=== PATIENT | female | born 1990 | race African-American/Black ===

== ENCOUNTER 2016-06-23 02:17 | Emergency (ER) | payer SELFPAY ==
--- NOTE | 2016-06-23 06:18 | ER Document Report ---
ED General <EMBER VILLALBA - Last Filed: 06/23/16 07:09> - General Time seen by provider: 06:20 Mode of Arrival: Ambulatory Information source: Patient TRAVEL OUTSIDE OF THE [place] IN LAST 30 DAYS: No - HPI Onset: Other - see HPI note Similar symptoms previously: No Recently seen / treated by doctor: No <VELMA SKINNER - Last Filed: 06/23/16 07:38> - General Chief Complaint: Toothache Stated Complaint: THROAT PAIN,WRIST PAIN Notes: Patient is a 25 year-old female presenting to the ED for mouth pain and wrist pain. Patient states she was coming to the ED to be evaluated for her sore mouth and tooth when she fell on her way to the car and hurt her left wrist. Patient has a broken tooth in the right upper back molar position. Patient has had the pain for the past 3 days. Patient states she has been taking Tylenol for her pain without relief. Patient states she is allergic to acetaminophen, doxycycline, hydrocodone, and ibuprofen. Patient has received hydrocodone in the past and states that it made her itch when it was given at the same time as the doxycycline. Patient does not have a primary care physician. Patient denies taking any medications daily. Patient's last menstrual period was 06/07/16. Patient has been evaluated in the ED for pain related complaints and tooth pain in the past. (VELMA SKINNER) - Related Data Allergies/Adverse Reactions: acetaminophen [From Vicodin] Allergy (Verified 06/23/16 02:20) doxycycline [Doxycycline] Allergy (Verified 06/23/16 02:19) hydrocodone [From Vicodin] Allergy (Verified 06/23/16 02:20) ibuprofen Allergy (Verified 06/23/16 02:20) Past Medical History - General Information source: Patient - Social History Smoking Status: Current Some Day Smoker Frequency of alcohol use: None Drug Abuse: None Family History: Reviewed & Not Pertinent, Other - family members with migraines Patient has suicidal ideation: No Patient has homicidal ideation: No Pulmonary Medical History: Reports: Hx Asthma Neurological Medical History: Reports: Hx Migraine Surgical Hx: Negative - Immunizations Hx Diphtheria, Pertussis, Tetanus Vaccination: Yes <VELMA SKINNER - Last Filed: 06/23/16 07:38> Review of Systems - Review of Systems Constitutional: No symptoms reported EENT: See HPI, Dental problem Cardiovascular: No symptoms reported Respiratory: No symptoms reported Gastrointestinal: No symptoms reported Genitourinary: No symptoms reported Female Genitourinary: No symptoms reported Musculoskeletal: See HPI Skin: No symptoms reported Hematologic/Lymphatic: No symptoms reported Neurological/Psychological: No symptoms reported -: Yes All other systems reviewed and negative <VELMA SKINNER - Last Filed: 06/23/16 07:38> Physical Exam - Vital signs Interpretation: Normal - General General appearance: Appears well, Alert In distress: Mild - HEENT Head: Normocephalic, Atraumatic Eyes: Normal Pupils: PERRL Mouth/Lips: Other - right upper back molar is broken off on the buccal side of the tooth, no swelling or sign of infection Mucous membranes: Moist Pharynx: Normal - Respiratory Respiratory status: No respiratory distress Chest status: Nontender Breath sounds: Normal Chest palpation: Normal - Cardiovascular Rhythm: Regular Heart sounds: Normal auscultation Murmur: No - Abdominal Inspection: Normal Distension: No distension Bowel sounds: Normal Tenderness: Nontender Organomegaly: No organomegaly - Back Back: Normal, Nontender - Extremities General lower extremity: Normal inspection, Normal ROM, Normal strength Wrist: Nontender - no tenderness or swelling along the distal ulna of the left wrist, Tender - tender and pain along the distal radius of the left wrist and over the the radial side of the distal 1/3 of the wrist, minimal swelling - Neurological Neuro grossly intact: Yes Cognition: Normal Orientation: AAOx4 [place] Coma Scale Eye Opening: Spontaneous Michael Coma Scale Verbal: Oriented Michael Coma Scale Motor: Obeys Commands [place] Coma Scale Total: 15 Speech: Normal Sensory: Normal - Psychological Associated symptoms: Normal affect, Normal mood - Skin Skin Temperature: Warm Skin Moisture: Dry <VELMA SKINNER - Last Filed: 06/23/16 07:38> - Vital signs Vitals: Temp Pulse Resp BP Pulse Ox 98.0 F 92 16 141/76 H 97 06/23/16 02:20 06/23/16 02:20 06/23/16 02:20 06/23/16 02:20 06/23/16 02:20 Course - Diagnostic Test Radiology reviewed: Image reviewed, Reports reviewed <EMBER VILLALBA - Last Filed: 06/23/16 07:09> <VELMA SKINNER - Last Filed: 06/23/16 07:38> - Re-evaluation Re-evalutation: 06/23/16 07:10 The x-ray was read as a dorsal subluxation of the distal ulna with some mild soft tissue swelling. On exam, all the pain is at the distal radius and over the mid radial forearm. There really is no tenderness over the distal ulna. There is no swelling appreciated. Examination of the other wrist shows similar appearance to the distal ulna. I suspect that is her normal anatomy. (EMBER VILLALBA) - Vital Signs Vital signs: Temp Pulse Resp BP Pulse Ox 98.3 F 77 16 123/74 99 06/23/16 06:53 06/23/16 06:53 06/23/16 06:53 06/23/16 06:53 06/23/16 06:53 Discharge <EMBER VILLALBA - Last Filed: 06/23/16 07:09> <VELMA SKINNER - Last Filed: 06/23/16 07:38> - Discharge Clinical Impression: Dental decay, Sore throat Left wrist sprain Qualifiers: Encounter type: initial encounter Qualified Code(s): S63.502A - Unspecified sprain of left wrist, initial encounter Condition: Stable Disposition: HOME, SELF-CARE Additional Instructions: Toothache: Your pain is due to dental decay. The tooth must be repaired in order for you to feel better. You will, therefore, be referred to a dentist. Severe swelling or drainage around a tooth usually means a deep dental abscess. This also requires evaluation and treatment by the dentist, but antibiotics may be prescribed while awaiting dental treatment. You should be rechecked immediately if you develop major swelling of the face, increasing pain, a lump in the jaw or gums, headache, or fever. Wrist Sprain: Your injury is a sprain. A sprain results from stretching or tearing of the ligaments, usually from a twisting injury. The ligaments will require time and protection in order to heal properly. Many sprains are quite disabling and should be taken seriously. The usual initial treatment of sprains is cold packs, elevation, and rest of the injured area. Your physician has assessed the seriousness of your ligament injury, and has outlined a treatment plan. Understand that this treatment may change, depending on how you progress. If a re-examination was recommended, it is important that you follow up as instructed. Call the doctor any time if there is severe pain, numbness, or loss of function in the injured area. USE THE SPLINT TO PROTECT THE WRIST. USE ICE-PACKS TODAY TO LIMIT SWELLING. TRY FIX-A-TOOTH TO SEAL THE HOLE ON THE OUTER WALL OF THE PAINFUL TOOTH. TAKE THE MEDICATION PRESCRIBED. FOLLOW UP WITH A DENTIST FOR THE DENTAL PROBLEM. FOLLOW UP WITH A LOCAL MEDICAL DOCTOR OR ORTHOPEDIC SURGEON THIS WEEK TO CHECK YOUR WRIST. Prescriptions: Oxycodone HCl/Acetaminophen [Percocet 5-325 mg Tablet] 1 - 2 tab PO ASDIR PRN # 10 tablet PRN Reason: Penicillin V Potassium [Penicillin Vk 500 mg Tablet] 500 mg PO QID #28 tablet Referrals: [facility] [Provider Group] - Follow up in 3-5 days Scribe Attestation: 06/23/16 06:42 I personally performed the services described in the documentation, reviewed and edited the documentation which was dictated to the scribe in my presence, and it accurately records my words and actions. (EMBER VILLALBA) Scribe Documentation - Scribe Written by Scribnakul:: Velma Skinner 06/23/16 7:33 acting as scribe for :: Edgar <VELMA SKINNER - Last Filed: 06/23/16 07:38>
[2016-06-23] MEDS ORDERED: OXYCODONE-ACETAMINOPHEN 5-325 MG TABLET PO ONE (06:35)
[2016-06-23 06:54] VITALS: BP 123/74
== END 2016-06-23 06:54 | disposition home or self-care (01) ==
LOC: ER 02:17
DX: S63.502A Unspecified sprain of left wrist, initial encounter (principal); K08.89 Other specified disorders of teeth and supporting structures; K02.9 Dental caries, unspecified; R07.0 Pain in throat; M25.532 Pain in left wrist; W19.XXXA Unspecified fall, initial encounter; Z79.899 Other long term (current) drug therapy; F17.200 Nicotine dependence, unspecified, uncomplicated
CPT/HCPCS: 99283; 73110; L3984

== ENCOUNTER 2017-07-11 06:48 | Emergency (ER) | payer SELFPAY ==
[2017-07-11 07:05] VITALS: BP 128/79
[2017-07-11] MEDS ORDERED: PENICILLIN V POTASSIUM 500 MG TABLET PO ONE (07:31)
[2017-07-11] MEDS ORDERED: TRAMADOL HCL 50 MG TABLET PO ONE (07:31)
--- NOTE | 2017-07-11 07:34 | ER Document Report ---
HPI - HPI Patient complains to provider of: dental pain Onset: Other - 3 days Onset/Duration: Persistent Quality of pain: Achy Pain Level: 5 Context: Patient presents complaining of dental pain for the past 3 days. Patient is uncertain if she may have had a fever. Patient feels that her face has been swollen. Associated Symptoms: Other - Dental pain Exacerbated by: Denies Relieved by: Denies Similar symptoms previously: Yes Recently seen / treated by doctor: No - ROS ROS below otherwise negative: Yes Systems Reviewed and Negative: Yes All other systems reviewed and negative - CONSTITUTIONAL Constitutional: DENIES: Fever, Chills - EENT Notes: dental pain - GASTROINTESTINAL Gastrointestinal: DENIES: Nausea, Patient vomiting - REPRODUCTIVE Reproductive: DENIES: : - MUSCULOSKELETAL Musculoskeletal: DENIES: Neck Pain - DERM Skin Color: Normal Skin Problems: None Past Medical History - General Information source: Patient - Social History Smoking Status: Never Smoker Chew tobacco use (# tins/day): No Frequency of alcohol use: None Drug Abuse: None Family History: Reviewed & Not Pertinent, Other - family members with migraines Patient has suicidal ideation: No Patient has homicidal ideation: No Pulmonary Medical History: Reports: Hx Asthma Neurological Medical History: Reports: Hx Migraine. Denies: Hx Cerebrovascular Accident Renal/ Medical History: Denies: Hx Peritoneal Dialysis Skin Medical History: Denies Hx MRSA Surgical Hx: Negative - Immunizations Hx Diphtheria, Pertussis, Tetanus Vaccination: Yes Vertical Provider Document - CONSTITUTIONAL Agree With Documented VS: Yes Exam Limitations: No Limitations General Appearance: WD/WN, No Apparent Distress - INFECTION CONTROL TRAVEL OUTSIDE OF THE [place] IN LAST 30 DAYS: No - HEENT HEENT: Atraumatic, Normocephalic Mouth Diagram: 1 - dental fracture, decay, tenderness, no gingival inflammation 2 - Dental fracture, tenderness, no abscess, no trismus - NECK Neck: Normal Inspection, Supple. negative: Lymphadenopathy-Left, Lymphadenopathy-Right - RESPIRATORY Respiratory: Breath Sounds Normal, No Respiratory Distress - CARDIOVASCULAR Cardiovascular: Regular Rate, Regular Rhythm, No Murmur - BACK Back: Normal Inspection - MUSCULOSKELETAL/EXTREMETIES Musculoskeletal/Extremeties: MAEW - NEURO Level of Consciousness: Awake, Alert, Appropriate Motor/Sensory: No Motor Deficit - DERM Integumentary: Warm, Dry, No Rash Course - Re-evaluation Re-evalutation: 07/11/17 controlled substance database reviewed - Vital Signs Vital signs: Temp Pulse Resp BP Pulse Ox 98.3 F 80 16 128/79 H 97 07/11/17 07:00 07/11/17 07:00 07/11/17 07:00 07/11/17 07:00 07/11/17 07:00 Discharge - Discharge Clinical Impression: Toothache Condition: Stable Disposition: HOME, SELF-CARE Instructions: Penicillin V K ([facility]), Toothache ([facility]), Ultram ([facility]) Additional Instructions: Return immediately for any new or worsening symptoms Followup with your primary care provider, call tomorrow to make a followup appointment Follow-up with your dental care provider Prescriptions: Penicillin V Potassium [Penicillin Vk 500 mg Tablet] 500 mg PO BID #20 tablet Tramadol HCl [Ultram 50 mg Tablet] 50 mg PO ASDIR PRN #12 tablet PRN Reason: Forms: Return to Work Referrals: DENTISTRY [Provider Group] - Follow up as needed
== END 2017-07-11 07:49 | disposition home or self-care (01) ==
LOC: ER 06:48
DX: K08.9 Disorder of teeth and supporting structures, unspecified (principal)
CPT/HCPCS: 99282

== ENCOUNTER 2018-11-07 19:33 | Inpatient (IN) | payer SELFPAY ==
--- NOTE | 2018-11-07 20:01 | ER Document Report ---
ED Medical Screen (RME) - General Chief Complaint: OB Problem (<20wks) Stated Complaint: ISSUE Time Seen by Provider: 11/07/18 19:44 Mode of Arrival: Ambulatory Information source: Patient Notes: Patient is a 27-year-old female presented with chief complaint of pelvic pain abdominal pain. Patient reports she is . She thinks she is approximately 22 weeks but she is not sure. Patient reports she has 2 different due dates, 1 of these 2 days puts her below 20 weeks and 1 of them puts her at 22 weeks. The pivot nurse did call labor and delivery who requested ultrasound to confirm dates. Patient denies any active bleeding, nausea, vomiting or diarrhea. I have greeted and performed a rapid initial assessment of this patient. A comprehensive ED assessment and evaluation of the patient, analysis of test results and completion of the medical decision making process will be conducted by additional ED providers. I have specifically instructed the patient or family members with the patient to immediately return to any nursing staff should anything change in the patient's condition or with their chief complaint. This medical record was dictated with voice recognizing software. There may be grammatical, syntax errors that are unintended. TRAVEL OUTSIDE OF THE [place] IN LAST 30 DAYS: No - Related Data Allergies/Adverse Reactions: doxycycline [Doxycycline] Allergy (Verified 06/23/16 02:19) hydrocodone [From Vicodin] Allergy (Verified 06/23/16 02:20) Past Medical History - Social History Frequency of alcohol use: None Drug Abuse: None Pulmonary Medical History: Reports: Hx Asthma Neurological Medical History: Reports: Hx Migraine. Denies: Hx Cerebrovascular Accident Renal/ Medical History: Denies: Hx Peritoneal Dialysis Skin Medical History: Denies Hx MRSA - Immunizations Hx Diphtheria, Pertussis, Tetanus Vaccination: Yes Physical Exam - Vital signs Vitals: Temp Pulse Resp BP Pulse Ox 98.9 F 80 20 138/84 H 100 11/07/18 19:37 11/07/18 19:37 11/07/18 19:37 11/07/18 19:37 11/07/18 19:37 Course - Vital Signs Vital signs: Temp Pulse Resp BP Pulse Ox 98.9 F 80 20 138/84 H 100 11/07/18 19:37 11/07/18 19:37 11/07/18 19:37 11/07/18 19:37 11/07/18 19:37
[2018-11-07 20:40] LABS: ABSOLUTE EOSINOPHILS # (AUTO) 0.1 10^3/uL (0.0-0.6); ABSOLUTE MONOCYTES (AUTO) 0.7 10^3/uL (0.1-1.4); APPEARANCE,URINE CLOUDY; BASOPHILS % (AUTO) 0.4 % (0-2); BILIRUBIN,URINE NEGATIVE (NEGATIVE); COLOR,URINE YELLOW; EOSINOPHILS % (AUTO) 1.2 % (0-6); GLUCOSE, URINE NEGATIVE (NEGATIVE); HEMATOCRIT 30.7 % (36.0-47.0); HEMOGLOBIN 10.8 g/dL (12.0-15.5); KETONES,URINE NEGATIVE (NEGATIVE); LEUKOCYTE ESTERASE,URINE NEGATIVE (NEGATIVE); LYMPHOCYTES % (AUTO) 18.3 % (13-45); MEAN CORPUSCULAR HEMOGLOBIN 28.8 pg (27.0-33.4); MEAN CORPUSCULAR HGB CONC 35.2 g/dL (32.0-36.0); MEAN CORPUSCULAR VOLUME 82 fl (80-97); MONOCYTES % (AUTO) 6.5 % (3-13); NITRITE,URINE NEGATIVE (NEGATIVE); PLATELET COUNT 339 10^3/uL (150-450); PROTEIN,URINE NEGATIVE (NEGATIVE); RED BLOOD COUNT 3.75 10^6/uL (3.72-5.28); RED CELL DISTRIBUTION WIDTH 13.9 % (11.5-14.0); SEGMENTED NEUTROPHILS % (AUTO) 73.6 % (42-78); TOTAL CELLS COUNTED % (AUTO) 100 %; URINE SPECIFIC GRAVITY 1.023; WHITE BLOOD COUNT 10.9 10^3/uL (4.0-10.5)
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
--- NOTE | 2018-11-07 20:55 | RADIOLOGY REPORT (SQ) ---
EXAM DESCRIPTION: US LIMITED COMPLETED DATE/TME: 11/07/2018 20:08 CLINICAL HISTORY: 27 years, Female, eval for side and dates, well being Findings: No movement is noted. No heart tones are noted. Estimated gestational age is 17 weeks and three days. Amniotic fluid is clear. IMPRESSION: Findings suspicious for intrauterine demise.
[2018-11-08] MEDS ORDERED: OXYCODONE-ACETAMINOPHEN 5-325 MG TABLET ONE ×4 (00:32→14:37)
[2018-11-08] MEDS ORDERED: RINGERS SOLUTION,LACTATED 1,000 ML IV PRN (00:35)
[2018-11-08] MEDS ORDERED: MISOPROSTOL 0.2 MG TABLET PV SCH ×2 (00:45→10:00)
[2018-11-08] MEDS ORDERED: MISOPROSTOL 0.2 MG TABLET ONE ×6 (01:54→15:32)
--- NOTE | 2018-11-08 02:37 | Admission Physical ---
Datetime Report Generated by CPN: 11/08/2018 02:37 CURRENT ADMISSION Chief Complaint: Other Chief Complaint Other: 17 wks. was told at [facility] no [facility]. Re-evaluation in ER confirmed. Has not had PNC. Indication for Induction: Demise Admit Impression : , Intrauterine ; Demise Admit Plan: Admit to Unit; Initiate Demise Protocol ALLERGIES Medication Allergies: hydrocodone (06/23/2016); doxycycline (06/23/2016) Latex: Unknown OBSTETRICAL HISTORY EDC: 04/14/2019 00:00 : 3 Para: 2 Term: 2 : 0 Livin SEE RECORDS Alcohol: No Marijuana : No Cocaine: No Other Illicit Drugs: No Cigarettes: Never Smoker. [id number] PHYSICAL EXAM General: Normal HEENT: Normal Neurologic: Normal Thyroid: Normal Heart: Normal Lungs: Normal Breast: Normal Back: Normal Abdomen: Normal Genitourinary Exam: Normal Extremities: Normal DTRs: Normal Pelvic Type: Adequate Vital Signs: Reviewed VAGINAL EXAM Dilatation: 0 Effacement: 0 Station: -4 MEMBRANES Pooling: Negative Membranes: Intact FETUS A EGA: 17.4 Monitoring: External US Admit Comment: induction with cytotec for evacuation of uterus of POC INFORMED CONSENT Signature: with User ID: [email or web address]
[2018-11-08] MEDS: OXYCODONE-ACETAMINOPHEN 5-325 MG TABLET PO PRN ×4 (06:18→20:41)
[2018-11-08] MEDS ORDERED: NALBUPHINE HCL INJ 10 MG/1 ML AMPULE INJ ONE (13:25)
[2018-11-08] MEDS ORDERED: NALBUPHINE HCL INJ 10 MG/1 ML AMPULE ONE (13:28)
[2018-11-08] MEDS: MISOPROSTOL 0.2 MG TABLET PO SCH ×2 (14:34→21:54)
[2018-11-08] MEDS ORDERED: MISOPROSTOL 0.2 MG TABLET PO ONE (15:35)
[2018-11-08] MEDS ORDERED: OXYTOCIN/NORMAL SALINE 20 UNIT/1,000 ML RTUINJ IV PRN ×2 (15:35→15:37)
[2018-11-08] MEDS ORDERED: DIPHENHYDRAMINE HCL 25 MG CAPSULE PO PRN (15:37)
[2018-11-08] MEDS ORDERED: ACETAMINOPHEN WITH CODEINE #3 TABLET PO PRN (15:37)
[2018-11-08] MEDS ORDERED: MAGNESIUM HYDROXIDE SUSP 30 ML UDCUP PO PRN (15:37)
[2018-11-08] MEDS ORDERED: BENZOCAINE/MENTHOL AEROSOL SPRAY 56 ML TOP PRN (15:37)
[2018-11-08] MEDS ORDERED: NA PHOS,M-B/NA PHOS,DI-BA (ADULT) 133 ML ENEMA PR PRN (15:37)
[2018-11-08] MEDS ORDERED: MEASLES,MUMPS&RUBELLA VACC/PF 0.5 ML VIAL SUBCUT PRN (15:37)
[2018-11-08] MEDS ORDERED: DIPH/PERTUSS(ACELL)/TETANUS VAC/PF 0.5 ML SYR (>=10YO) IM PRN (15:37)
[2018-11-08] MEDS ORDERED: PROMETHAZINE HCL 25 MG SUPP.RECT PR PRN (15:37)
[2018-11-08] MEDS ORDERED: ZOLPIDEM TARTRATE 5 MG TABLET PO PRN (15:37)
[2018-11-08] MEDS ORDERED: GLYCERIN/WITCH HAZEL LEAF 1 EACH MED..WIPE TP PRN (15:37)
[2018-11-08] MEDS ORDERED: DIBUCAINE 1% OINTMENT 56 GM TP PRN (15:37)
[2018-11-08] MEDS ORDERED: PROMETHAZINE HCL 25 MG TABLET PO PRN (15:37)
[2018-11-08] MEDS ORDERED: OXYTOCIN/NORMAL SALINE 20 UNIT/1,000 ML RTUINJ ONE (15:37)
[2018-11-08] MEDS ORDERED: ACETAMINOPHEN 650 MG SUPP.RECT PR PRN (15:37)
[2018-11-08] MEDS ORDERED: PSEUDOEPHEDRINE HCL 30 MG TABLET PO PRN (15:37)
[2018-11-08] MEDS ORDERED: PROMETHAZINE HCL INJ 25 MG/1 ML VIAL IV PRN (15:37)
[2018-11-08] MEDS ORDERED: ACETAMINOPHEN WITH CODEINE #3 TABLET ONE (18:30)
[2018-11-08] MEDS: ACETAMINOPHEN WITH CODEINE #3 TABLET PO PRN (18:31)
[2018-11-08] MEDS: IBUPROFEN 800 MG TABLET PO SCH (21:49)
[2018-11-08] MEDS: FAMOTIDINE 20 MG TABLET PO SCH (21:54)
[2018-11-08] MEDS: DOCUSATE SODIUM 100 MG CAPSULE PO SCH (21:54)
[2018-11-08] MEDS: FERROUS SULFATE 325 MG TABLET PO SCH (21:54)
[2018-11-09] MEDS: OXYCODONE-ACETAMINOPHEN 5-325 MG TABLET PO PRN ×3 (01:39→13:27)
[2018-11-09] MEDS: IBUPROFEN 800 MG TABLET PO SCH ×2 (05:34→14:33)
[2018-11-09] MEDS: FERROUS SULFATE 325 MG TABLET PO SCH ×2 (09:26→17:03)
[2018-11-09] MEDS: FAMOTIDINE 20 MG TABLET PO SCH (09:26)
[2018-11-09] MEDS: DOCUSATE SODIUM 100 MG CAPSULE PO SCH ×2 (09:26→17:03)
[2018-11-09 09:38] LABS: HEMATOCRIT 21.9 % (36.0-47.0); MEAN CORPUSCULAR HEMOGLOBIN 29.4 pg (27.0-33.4); MEAN CORPUSCULAR HGB CONC 36.4 g/dL (32.0-36.0); MEAN CORPUSCULAR VOLUME 81 fl (80-97); PLATELET COUNT 233 10^3/uL (150-450); RED BLOOD COUNT 2.72 10^6/uL (3.72-5.28); RED CELL DISTRIBUTION WIDTH 13.8 % (11.5-14.0); WHITE BLOOD COUNT 9.7 10^3/uL (4.0-10.5)
[2018-11-09] MEDS ORDERED: SENNOSIDES/DOCUSATE 8.6-50 MG 1 EACH TABLET PO SCH (10:00)
[2018-11-09] MEDS ORDERED: PRENATAL VITAMIN W DHA CAPSULE PO SCH (10:00)
[2018-11-09 16:21] VITALS: BP 106/55
[2018-11-09] MEDS: ACETAMINOPHEN WITH CODEINE #3 TABLET PO PRN (17:05)
--- NOTE | 2018-11-09 18:12 | PDOC DISCHARGE SUMMARY ---
General - Admit/Disc Date/PCP Admission Date/Primary Care Provider: 11/08/18 00:35 Discharge Date: 11/09/18 - Discharge Diagnosis (1) demise before 20 weeks with retention of fetus Is this a current diagnosis for this admission?: Yes (2) Vaginal delivery Is this a current diagnosis for this admission?: Yes - Additional Information Discharge Diet: As Tolerated, Regular Discharge Activity: Activity As Tolerated, Pelvic Rest, Slowly Increase Activity Home Medications: No Home Medications 02/10/12 History of Present Illness Patient complains of: Abdominal pain History of Present Illness: ROLDAN CHOPRA is a 27 year old female with an intrauterine at approximately 17 weeks, presented to labor and delivery complaining of abdominal pain. It was noted that the patient had a demise. Patient was given Cytotec and delivered vaginally, without complications. Hospital Course Hospital Course: Hospital course was essentially uneventful by day #1, patient was ambulating and voiding without difficulty. She did have one dizzy spell immediately . Her hemoglobin was 10.8 prior to delivery and went down to 8.0. She has not ambulated much today. Her lochia is decreasing. Patient denies chest pain, shortness of breath, fever/chills or nausea/vomiting. Physical Exam - Physical Exam Vital Signs: Temp Pulse Resp BP Pulse Ox 98.1 F 62 16 106/55 L 100 11/09/18 17:23 11/09/18 17:23 11/09/18 17:23 11/09/18 17:23 11/09/18 17:23 Intake & Output 11/08/18 11/09/18 11/10/18 06:59 06:59 06:59 Weight 75.9 kg General appearance: PRESENT: no acute distress Respiratory exam: PRESENT: chest wall tenderness Cardiovascular exam: PRESENT: RRR GI/Abdominal exam: PRESENT: normal bowel sounds, soft Extremities exam: ABSENT: calf tenderness, clubbing, full ROM, joint swelling, pedal edema, tenderness, +1 edema, +2 edema, other - Gynecological Exam Vagina: other - Decreasing lochia Result Laboratory Results: 11/09/18 09:24 11/09/18 09:24 WBC 9.7 RBC 2.72 L Hgb 8.0 L D Hct 21.9 L MCV 81 MCH 29.4 MCHC 36.4 H RDW 13.8 Plt Count 233 Impressions: Obstetrics Ultrasound 11/07/18 20:08 IMPRESSION: Findings suspicious for intrauterine demise. Plan Discharge Plan: 1. Anticipate discharge home this evening 2. Follow-up in the office in 1 week for depression check 3. Prescriptions for Percocet and Ibuprofen given Time Spent: Less than 30 Minutes Acute Heart Failure - Is this a Heart Failure Patient?: No
== END 2018-11-09 18:34 | disposition home or self-care (01) | DRG 770 ==
LOC: ER 19:33 → EH 21:46 → LR 11-08 00:21 → OBSVTOIN 11-08 00:35 → 2N 11-08 20:30
PROVIDERS: ADMIT Obstetrics & Gynecology; ATTEND Obstetrics & Gynecology
PROC: 10D17ZZ Extraction of Products of Conception, Retained, Via Natural or Artificial Opening (ICD-10-PCS; principal; 2018-11-08)
PROC: 3E0P7VZ Introduction of Hormone into Female Reproductive, Via Natural or Artificial Opening (ICD-10-PCS; 2018-11-08)
DX: O02.1 Missed abortion (principal); O99.332 Smoking (tobacco) complicating pregnancy, second trimester; F17.210 Nicotine dependence, cigarettes, uncomplicated; Z88.6 Allergy status to analgesic agent; Z88.8 Allergy status to other drugs, medicaments and biological substances
CPT/HCPCS: 36415; 76815; 81001; 84702; 85025; 85027; 86592; 86850; 86900; 86901; 88305; 88307; 99285; J2300; J2590; J3490

== ENCOUNTER 2018-11-14 18:37 | Emergency (ER) | payer SELFPAY ==
--- NOTE | 2018-11-14 19:17 | ER Document Report ---
ED Medical Screen (RME) - General Chief Complaint: Pelvic Pain Stated Complaint: ABDOMINAL PAIN,LIGHTHEADED Time Seen by Provider: 11/14/18 19:08 Mode of Arrival: Ambulatory Information source: Patient Notes: 27-year-old female presents to ED for complaint of increased pelvic pain and bleeding after she had a stillborn at 22 weeks last Friday. She states that the pain and bleeding have increased and she has had bright red blood with clots. Patient is alert oriented respirations regular and unlabored speaking in full sentences she is able to walk with a even steady gait. Patient is tearful at this time. I have greeted and performed a rapid initial assessment of this patient. A comprehensive ED assessment and evaluation of the patient, analysis of test results and completion of medical decision making process will be conducted by an additional ED providers. TRAVEL OUTSIDE OF THE [place] IN LAST 30 DAYS: No - Related Data Allergies/Adverse Reactions: doxycycline [Doxycycline] Allergy (Verified 11/14/18 18:40) hydrocodone [From Vicodin] Allergy (Verified 11/14/18 18:40) Past Medical History Pulmonary Medical History: Reports: Hx Asthma Neurological Medical History: Reports: Hx Migraine. Denies: Hx Cerebrovascular Accident Renal/ Medical History: Denies: Hx Peritoneal Dialysis Skin Medical History: Denies Hx MRSA - Immunizations Hx Diphtheria, Pertussis, Tetanus Vaccination: Yes Physical Exam - Vital signs Vitals: Temp Pulse Resp BP Pulse Ox 99.1 F 66 20 128/86 H 100 11/14/18 18:48 11/14/18 18:48 11/14/18 18:48 11/14/18 18:48 11/14/18 18:48 Course - Vital Signs Vital signs: Temp Pulse Resp BP Pulse Ox 99.1 F 66 20 128/86 H 100 11/14/18 18:48 11/14/18 18:48 11/14/18 18:48 11/14/18 18:48 11/14/18 18:48
[2018-11-14] MEDS ORDERED: MORPHINE SULFATE 10 MG/ML INJ IV ONE (19:29)
[2018-11-14] MEDS ORDERED: ONDANSETRON HCL INJ/PF 4 MG/2 ML SDV IV ONE (19:29)
[2018-11-14 20:13] LABS: ABSOLUTE BASOPHILS # (AUTO) 0.1 10^3/uL (0.0-0.2); ABSOLUTE EOSINOPHILS # (AUTO) 0.2 10^3/uL (0.0-0.6); ABSOLUTE LYMPHOCYTES (AUTO) 2.6 10^3/uL (0.5-4.7); ABSOLUTE MONOCYTES (AUTO) 0.7 10^3/uL (0.1-1.4); ABSOLUTE NEUT (AUTO) 7.4 10^3/uL (1.7-8.2); BASOPHILS % (AUTO) 0.8 % (0-2); EOSINOPHILS % (AUTO) 1.9 % (0-6); HEMATOCRIT 28.2 % (36.0-47.0); HEMOGLOBIN 10.1 g/dL (12.0-15.5); LYMPHOCYTES % (AUTO) 23.5 % (13-45); MEAN CORPUSCULAR HEMOGLOBIN 29.2 pg (27.0-33.4); MEAN CORPUSCULAR HGB CONC 35.9 g/dL (32.0-36.0); MEAN CORPUSCULAR VOLUME 82 fl (80-97); MONOCYTES % (AUTO) 6.5 % (3-13); PLATELET COUNT 341 10^3/uL (150-450); RED BLOOD COUNT 3.46 10^6/uL (3.72-5.28); RED CELL DISTRIBUTION WIDTH 13.9 % (11.5-14.0); SEGMENTED NEUTROPHILS % (AUTO) 67.3 % (42-78); TOTAL CELLS COUNTED % (AUTO) 100 %
[2018-11-14 20:21] LABS: APPEARANCE,URINE CLOUDY; BILIRUBIN,URINE NEGATIVE (NEGATIVE); COLOR,URINE YELLOW; GLUCOSE, URINE NEGATIVE (NEGATIVE); KETONES,URINE NEGATIVE (NEGATIVE); LEUKOCYTE ESTERASE,URINE LARGE (NEGATIVE); NITRITE,URINE NEGATIVE (NEGATIVE); PROTEIN,URINE 100 mg/dL (NEGATIVE); URINE SPECIFIC GRAVITY 1.024
[2018-11-14 20:44] LABS: ALBUMIN 3.7 g/dL (3.5-5.0); ALKALINE PHOSPHATASE 81 U/L (38-126); ANION GAP 7 (5-19); ASPARTATE AMINO TRANSFERASE 18 U/L (14-36); BILIRUBIN,DIRECT 0.3 mg/dL (0.0-0.4); BILIRUBIN,TOTAL 0.3 mg/dL (0.2-1.3); BLOOD UREA NITROGEN 11 mg/dL (7-20); CALCIUM 9.2 mg/dL (8.4-10.2); CARBON DIOXIDE 28 mmol/L (22-30); CHLORIDE 107 mmol/L (98-107); GLUCOSE 93 mg/dL (75-110); POTASSIUM 4.1 mmol/L (3.6-5.0); TOTAL PROTEIN 7.1 g/dL (6.3-8.2)
--- NOTE | 2018-11-14 21:00 | RADIOLOGY REPORT (SQ) ---
EXAM DESCRIPTION: [facility]: US PELVIS TRANSVAGINAL CLINICAL HISTORY: 27 years Female Post stillborn increased pain and bleeding TECHNIQUE: Endovaginal pelvic ultrasound was performed. COMPARISON: None. FINDINGS: Uterus: 10.6 x 6.7 x 7.1 cm, with 27 mm endometrial stripe. There are no discrete endometrial structures. No hyperemia on color Doppler. Cervix 3.4 cm Right ovary: Not visualized. Left ovary: Not visualized. No free fluid. No adnexal masses. IMPRESSION: 1. Thickened endometrium, but no discrete endometrial structures to suggest retained product of conception. 2. Ovaries not visualized.
[2018-11-14] MEDS ORDERED: HYDROMORPHONE HCL INJ/PF 2 MG/ML AMPULE IV ONE (21:41)
[2018-11-14 22:54] LABS: ABSOLUTE EOSINOPHILS # (AUTO) 0.3 10^3/uL (0.0-0.6); ABSOLUTE LYMPHOCYTES (AUTO) 3.1 10^3/uL (0.5-4.7); ABSOLUTE MONOCYTES (AUTO) 0.8 10^3/uL (0.1-1.4); BASOPHILS % (AUTO) 0.2 % (0-2); EOSINOPHILS % (AUTO) 2.3 % (0-6); HEMATOCRIT 27.1 % (36.0-47.0); HEMOGLOBIN 9.3 g/dL (12.0-15.5); LYMPHOCYTES % (AUTO) 27.9 % (13-45); MEAN CORPUSCULAR HEMOGLOBIN 28.3 pg (27.0-33.4); MEAN CORPUSCULAR HGB CONC 34.4 g/dL (32.0-36.0); MEAN CORPUSCULAR VOLUME 83 fl (80-97); MONOCYTES % (AUTO) 6.9 % (3-13); PLATELET COUNT 323 10^3/uL (150-450); RED BLOOD COUNT 3.29 10^6/uL (3.72-5.28); RED CELL DISTRIBUTION WIDTH 14.2 % (11.5-14.0); SEGMENTED NEUTROPHILS % (AUTO) 62.7 % (42-78); TOTAL CELLS COUNTED % (AUTO) 100 %; WHITE BLOOD COUNT 11.1 10^3/uL (4.0-10.5)
--- NOTE | 2018-11-15 00:15 | ER Document Report ---
ED GI/ - General Chief Complaint: Pelvic Pain Stated Complaint: ABDOMINAL PAIN,LIGHTHEADED Time Seen by Provider: 11/14/18 19:08 Primary Care Provider: GLENDY MUNOZ MD [DELIA LOVE] - Follow up as needed Mode of Arrival: Ambulatory Information source: Patient Notes: Patient is a G3, P2 presenting to the emergency department with chief complaint of pelvic pain and increased vaginal bleeding after delivering a 17-week fetus on 11/14/2018. Patient reports she had the vaginal delivery here, states there was issues getting the placenta out. Patient reports over the last 24 hours her bleeding has increased and she now has low abdominal pain and pelvic pain. Patient denies any fevers but does report some chills at home. TRAVEL OUTSIDE OF THE [place] IN LAST 30 DAYS: No - Related Data Allergies/Adverse Reactions: doxycycline [Doxycycline] Allergy (Verified 11/14/18 18:40) hydrocodone [From Vicodin] Allergy (Verified 11/14/18 18:40) Past Medical History - General Information source: Patient - Social History Smoking Status: Never Smoker Chew tobacco use (# tins/day): No Frequency of alcohol use: None Drug Abuse: None Family History: Reviewed & Not Pertinent, Other - family members with migraines Patient has suicidal ideation: No Patient has homicidal ideation: No Pulmonary Medical History: Reports: Hx Asthma Neurological Medical History: Reports: Hx Migraine. Denies: Hx Cerebrovascular Accident Renal/ Medical History: Denies: Hx Peritoneal Dialysis Skin Medical History: Denies Hx MRSA - Immunizations Hx Diphtheria, Pertussis, Tetanus Vaccination: Yes Review of Systems - Review of Systems Constitutional: Chills EENT: No symptoms reported Cardiovascular: No symptoms reported Respiratory: No symptoms reported Gastrointestinal: Abdominal pain Genitourinary: No symptoms reported Female Genitourinary: Vaginal bleeding Musculoskeletal: No symptoms reported Physical Exam - Vital signs Vitals: Temp Pulse Resp BP Pulse Ox 99.1 F 66 20 128/86 H 100 11/14/18 18:48 11/14/18 18:48 11/14/18 18:48 11/14/18 18:48 11/14/18 18:48 - Notes Notes: PHYSICAL EXAMINATION: GENERAL: Well-appearing, well-nourished and in no acute distress. HEAD: Atraumatic, normocephalic. EYES: Pupils equal round and reactive to light, extraocular movements intact, conjunctiva are normal. ENT: Nares patent, oropharynx clear without exudates. Moist mucous membranes. NECK: Normal range of motion, supple without lymphadenopathy LUNGS: Breath sounds clear to auscultation bilaterally and equal. No wheezes rales or rhonchi. HEART: Regular rate and rhythm without murmurs ABDOMEN: Soft, nontender, nondistended abdomen. No guarding, no rebound. No masses appreciated. Female : Dark brown blood noted in the vaginal vault, no active bleeding noted, cervix closed. No cervical motion tenderness or adnexal tenderness. Musculoskeletal: Normal range of motion, no pitting or edema. No cyanosis. NEUROLOGICAL: Cranial nerves grossly intact. Normal speech, normal gait. Normal sensory, motor exams PSYCH: Normal mood, normal affect. SKIN: Warm, Dry, normal turgor, no rashes or lesions noted. Course - Re-evaluation Re-evalutation: Laboratory 11/14/18 11/14/18 11/14/18 19:45 19:45 19:45 WBC 11.0 H RBC 3.46 L Hgb 10.1 L Hct 28.2 L MCV 82 MCH 29.2 MCHC 35.9 RDW 13.9 Plt Count 341 Lymph % (Auto) 23.5 Pettis % (Auto) 6.5 Eos % (Auto) 1.9 Baso % (Auto) 0.8 Absolute Neuts (auto) 7.4 Absolute Lymphs (auto) 2.6 Absolute Monos (auto) 0.7 Absolute Eos (auto) 0.2 Absolute Basos (auto) 0.1 Seg Neutrophils % 67.3 Sodium 142.0 Potassium 4.1 Chloride 107 Carbon Dioxide 28 Anion Gap 7 BUN 11 Creatinine 0.49 L Est GFR ( Amer) > 60 Est GFR (MDRD) Non-Af > 60 Glucose 93 Calcium 9.2 Total Bilirubin 0.3 Direct Bilirubin 0.3 Neonat Total Bilirubin Not Reportable Neonat Direct Bilirubin Not Reportable Neonat Indirect Bili Not Reportable AST 18 ALT 9 Alkaline Phosphatase 81 Total Protein 7.1 Albumin 3.7 Serum HCG, Qual POSITIVE H Beta HCG, Quant 17.23 H Total Beta HCG POSITIVE Urine Color Urine Appearance Urine pH Ur Specific [place] Urine Protein Urine Glucose (UA) Urine Ketones Urine Blood Urine Nitrite Urine Bilirubin Urine Urobilinogen Ur Leukocyte Esterase Urine WBC (Auto) Urine RBC (Auto) Urine Bacteria (Auto) Urine WBC Clumps Squamous Epi Cells Auto Urine Mucus (Auto) Urine Ascorbic Acid 11/14/18 11/14/18 19:45 22:30 WBC 11.1 H RBC 3.29 L Hgb 9.3 L Hct 27.1 L MCV 83 MCH 28.3 MCHC 34.4 RDW 14.2 H Plt Count 323 Lymph % (Auto) 27.9 Pettis % (Auto) 6.9 Eos % (Auto) 2.3 Baso % (Auto) 0.2 Absolute Neuts (auto) 7.0 Absolute Lymphs (auto) 3.1 Absolute Monos (auto) 0.8 Absolute Eos (auto) 0.3 Absolute Basos (auto) 0.0 Seg Neutrophils % 62.7 Sodium Potassium Chloride Carbon Dioxide Anion Gap BUN Creatinine Est GFR ( Amer) Est GFR (MDRD) Non-Af Glucose Calcium Total Bilirubin Direct Bilirubin Neonat Total Bilirubin Neonat Direct Bilirubin Neonat Indirect Bili AST ALT Alkaline Phosphatase Total Protein Albumin Serum HCG, Qual Beta HCG, Quant Total Beta HCG Urine Color YELLOW Urine Appearance CLOUDY Urine pH 7.0 Ur Specific [place] 1.024 Urine Protein 100 H Urine Glucose (UA) NEGATIVE Urine Ketones NEGATIVE Urine Blood LARGE H Urine Nitrite NEGATIVE Urine Bilirubin NEGATIVE Urine Urobilinogen 2.0 H Ur Leukocyte Esterase LARGE H Urine WBC (Auto) >182 Urine RBC (Auto) >182 Urine Bacteria (Auto) 2+ Urine WBC Clumps FEW Squamous Epi Cells Auto 5 Urine Mucus (Auto) MOD Urine Ascorbic Acid NEGATIVE Transvaginal US 11/14/18 19:15 IMPRESSION: 1. Thickened endometrium, but no discrete endometrial structures to suggest retained product of conception. 2. Ovaries not visualized. Labs as recorded above. Patient was given 1 g of ceftriaxone due to results on urinalysis although patient denies any urinary symptoms. Urine culture is pending. Speculum exam revealed very scant amount of dark red blood in the vaginal vault but no active bleeding. Repeat CBC was obtained and there was a slight drop in her hemoglobin. I will call the CARDIAC NURSE on-call to discuss and decide what is the best treatment plan for this patient. 11/15/18 00:00 Discussed case with on-call CARDIAC NURSE, Dr. Summers. We went over patient's blood work and ultrasound reports. She recommends discharging patient home with pain medication and have her follow-up in the office. This was discussed with the patient, patient verbalizes understanding and agreement with this plan. I did discuss very strict return precautions which patient is agreeable to. - Vital Signs Vital signs: Temp Pulse Resp BP Pulse Ox 99.0 F 65 16 136/92 H 100 11/15/18 01:20 11/15/18 01:20 11/15/18 01:20 11/15/18 01:20 11/15/18 01:20 - Laboratory Result Diagrams: 11/14/18 22:30 11/14/18 19:45 Laboratory results interpreted by me: 11/14/18 11/14/18 11/14/18 19:45 19:45 19:45 WBC 11.0 H RBC 3.46 L Hgb 10.1 L Hct 28.2 L RDW Creatinine 0.49 L Serum HCG, Qual POSITIVE H Beta HCG, Quant 17.23 H Urine Protein Urine Blood Urine Urobilinogen Ur Leukocyte Esterase 11/14/18 11/14/18 19:45 22:30 WBC 11.1 H RBC 3.29 L Hgb 9.3 L Hct 27.1 L RDW 14.2 H Creatinine Serum HCG, Qual Beta HCG, Quant Urine Protein 100 H Urine Blood LARGE H Urine Urobilinogen 2.0 H Ur Leukocyte Esterase LARGE H Discharge - Discharge Clinical Impression: Pelvic pain, Vaginal bleeding Condition: Stable Disposition: HOME, SELF-CARE Additional Instructions: You are seen in the emergency department for pelvic pain and vaginal bleeding. I spoke with the on-call physician for [facility], Dr. Summers and discussed all of your test results. She feels that it is safe to discharge home at this time with appropriate pain medication to manage your pain. Please return to the emergency department immediately if you develop worsening abdominal pain, increased vaginal bleeding, bleeding through more than 1 pad per hour for 4 hours consecutively or you develop a fever. If any of these occur want you coming back here immediately so we can repeat your work-up. Prescriptions: Oxycodone HCl/Acetaminophen [Percocet 5-325 mg Tablet] 1 - 2 tab PO Q4H PRN #15 tablet PRN Reason: Referrals: GLENDY MUNOZ MD [DELIA LOVE] - Follow up as needed
[2018-11-15] MEDS ORDERED: HYDROCODONE/ACETAMINOPHEN 5-325 MG (6 TAB/ER DISP) PO PRN (00:25)
[2018-11-15] MEDS ORDERED: KETOROLAC TROMETHAMINE INJ/PF 30 MG/1 ML SDV IV ONE (00:26)
[2018-11-15] MEDS ORDERED: CEFTRIAXONE 1 GM/D5W RTU 1 GM/50 ML RTUPB IV ONE (00:30)
[2018-11-15] MEDS ORDERED: OXYCODONE-ACETAMINOPHEN 5-325 MG TABLET PO ONE (01:05)
[2018-11-15 01:21] VITALS: BP 136/92
== END 2018-11-15 01:35 | disposition home or self-care (01) ==
LOC: ER 18:37
DX: R10.2 Pelvic and perineal pain (principal); N93.8 Other specified abnormal uterine and vaginal bleeding; Z88.6 Allergy status to analgesic agent; R68.83 Chills (without fever)
CPT/HCPCS: 99284; 96375; 96365; 36415; 87086; 84702; 84703; 85025; 80053; 81001; 76830; 93976; J1885; J2270; J1170; J2405; J0696; 87088

== ENCOUNTER 2019-06-16 02:43 | Emergency (ER) | payer SELFPAY ==
[2019-06-16] MEDS ORDERED: AMOXICILLIN TRIHYDRATE 500 MG CAPSULE PO ONE (03:31)
[2019-06-16] MEDS ORDERED: ACETAMINOPHEN 325 MG TABLET PO ONE (03:31)
[2019-06-16] MEDS ORDERED: DEXAMETHASONE SOD PHOS INJ 10 MG/1 ML VIAL IM ONE (03:31)
--- NOTE | 2019-06-16 03:35 | ER Document Report ---
HPI - HPI Time Seen by Provider: 06/16/19 03:10 Context: Patient is a 28-year-old female that comes emergency department for chief complaint of 5 days of worsening sinus congestion, pressure, and pain. She states now her teeth are starting to hurt. She states that she does have some drainage nasally and down the back of her throat with a mild sore throat. She denies difficulty swallowing or breathing, cough, fever, chills, body aches. She states she has had symptoms similar to this frequently in the past. She denies smoking, daily medications, or . She denies any other complaints, denies recent travel or exposures. - REPRODUCTIVE Reproductive: DENIES: : Past Medical History - General Information source: Patient - Social History Smoking Status: Never Smoker Frequency of alcohol use: None Drug Abuse: None Lives with: Family Family History: Reviewed & Not Pertinent, Other - family members with migraines Pulmonary Medical History: Reports: Hx Asthma Neurological Medical History: Reports: Hx Migraine. Denies: Hx Cerebrovascular Accident Renal/ Medical History: Denies: Hx Peritoneal Dialysis Skin Medical History: Denies Hx MRSA Surgical Hx: Negative - Immunizations Hx Diphtheria, Pertussis, Tetanus Vaccination: Yes Vertical Provider Document - CONSTITUTIONAL General Appearance: WD/WN, No Apparent Distress - INFECTION CONTROL TRAVEL OUTSIDE OF THE [place] IN LAST 30 DAYS: No - HEENT HEENT: Atraumatic, Normocephalic, PERRLA. negative: Conjuctival Injection, Normal ENT Exam - Patient with sinus congestion and mild swelling of bilateral turbinates without concerning finding otherwise, there is tenderness over both maxillary sinuses with wincing. Frontal sinuses unremarkable. Oropharyngeal exam unremarkable except for very minimal erythema of the posterior pharynx, no exudates or tonsillar hypertrophy, normal uvula, patent airway. Unremarkable ears, unremarkable ENT exam otherwise. - NECK Neck: Other - There is very mild bilateral anterior cervical adenopathy - RESPIRATORY Respiratory: Breath Sounds Normal, No Respiratory Distress, Chest Non-Tender. negative: Wheezing - CARDIOVASCULAR Cardiovascular: Regular Rate, Regular Rhythm. negative: Tachycardia - GI/ABDOMEN Gastrointestinal: Abdomen Soft, Abdomen Non-Tender - BACK Back: Normal Inspection - MUSCULOSKELETAL/EXTREMETIES Musculoskeletal/Extremeties: MAEW, FROM, Non-Tender - NEURO Level of Consciousness: Awake, Alert, Appropriate Motor/Sensory: No Motor Deficit, No Sensory Deficit - DERM Integumentary: Warm, Dry, No Rash Course - Re-evaluation Re-evalutation: Patient's evaluation is most consistent with sinusitis including sinus tenderness, sinus congestion, and teeth pain. Unremarkable physical exam otherwise. Discussed options and recommendations, discussed treatment, discussed follow-up and return precautions. Patient states appreciation and agreement. Stable at time of discharge. - Vital Signs Vital signs: Temp Pulse Resp BP Pulse Ox 98.8 F 70 16 152/108 H 98 06/16/19 03:20 06/16/19 03:20 06/16/19 03:20 06/16/19 03:20 06/16/19 03:20 Discharge - Discharge Clinical Impression: Sinusitis Qualifiers: Sinusitis location: maxillary Chronicity: acute Recurrence: non-recurrent Qualified Code(s): J01.00 - Acute maxillary sinusitis, unspecified Pharyngitis Qualifiers: Pharyngitis/tonsillitis etiology: unspecified etiology Qualified Code(s): J02.9 - Acute pharyngitis, unspecified Condition: Stable Disposition: HOME, SELF-CARE Additional Instructions: Your evaluation is consistent with a sinus infection. In addition to the antibiotics I recommend that you take the Sudafed and Flonase. Take [id number] Tylenol and ibuprofen for pain. You may consider using neti pot for your symptoms as well (over the counter). I recommend a daily antiallergy medication during the winter and spring months because of your history (such as cetirizine). Follow-up with primary care. Return for any concerning symptoms including difficulty breathing or swallowing, spiking fevers, or any other concerning symptoms. Prescriptions: Amoxicillin Trihydrate [Amoxil 500 mg Capsule] 1,000 mg PO BID 7 Days #28 capsule Fluticasone Propionate [Flonase Nasal [place] 50 Mcg/[place] 16 gm] 2 sprays NASL Q12 #1 inhaler Pseudoephedrine HCl [Sudafed 12 Hour] 120 mg PO Q12 PRN #14 tablet.er PRN Reason: Forms: Return to Work
[2019-06-16 05:42] VITALS: BP 138/70
== END 2019-06-16 05:00 | disposition home or self-care (01) ==
LOC: ER 02:43
DX: J01.00 Acute maxillary sinusitis, unspecified (principal); J02.9 Acute pharyngitis, unspecified; R59.0 Localized enlarged lymph nodes; R09.81 Nasal congestion; K08.89 Other specified disorders of teeth and supporting structures; J45.909 Unspecified asthma, uncomplicated
CPT/HCPCS: 99283; 96372; J1100

== ENCOUNTER 2020-02-22 11:13 | Emergency (ER) | payer SELFPAY ==
--- NOTE | 2020-02-22 11:41 | ER Document Report ---
ED Medical Screen (RME) - General Chief Complaint: Pelvic Pain Stated Complaint: PELVIC PAIN Time Seen by Provider: 02/22/20 11:30 TRAVEL OUTSIDE OF THE [place] IN LAST 30 DAYS: No - HPI Notes: 02/22/20 11:38 29-year-old female LMP 12/07/2019 G4, P2 presents to the emergency room with suprapubic pelvic pain that started proximately 2 days ago, reports she is also had stomach cramps. Reports she did vomit 2 days ago but has not vomited since, reports nausea today, no vaginal bleeding or vaginal discharge. Denies any fevers or chills. Patient states she "thinks I am ". States she had a positive test back in December but has not been seen by FLIGHT CONTROL MANAGER, not taking prenatals. Patient very vague and poor historian I have greeted and performed a rapid initial assessment of this patient. A comprehensive ED assessment and evaluation of the patient, analysis of test results and completion of the medical decision making process will be conducted by additional ED providers. PHYSICAL EXAMINATION: GENERAL: Well-appearing, well-nourished and in no acute distress. EYES: Pupils equal round extraocular movements intact, conjunctiva are normal. Difficult for patient to keep eyes open CV: s1, s2 regular LUNGS: No respiratory distress Musculoskeletal: Normal range of motion NEUROLOGICAL: Normal speech, normal gait. SKIN: Warm, Dry, normal turgor, no rashes or lesions noted. 02/22/20 11:39 - Related Data Allergies/Adverse Reactions: doxycycline [Doxycycline] Allergy (Verified 02/22/20 11:31) hydrocodone [From Vicodin] Allergy (Verified 02/22/20 11:31) ibuprofen Allergy (Verified 02/22/20 11:31) Past Medical History Pulmonary Medical History: Reports: Hx Asthma Neurological Medical History: Reports: Hx Migraine. Denies: Hx Cerebrovascular Accident Renal/ Medical History: Denies: Hx Peritoneal Dialysis Skin Medical History: Denies Hx MRSA - Immunizations Hx Diphtheria, Pertussis, Tetanus Vaccination: Yes Physical Exam - Vital signs Vitals: Temp Pulse Resp BP Pulse Ox 98.5 F 91 16 122/74 100 02/22/20 11:17 02/22/20 11:17 02/22/20 11:17 02/22/20 11:17 02/22/20 11:17 Course - Vital Signs Vital signs: Temp Pulse Resp BP Pulse Ox 98.5 F 91 16 122/74 100 02/22/20 11:17 02/22/20 11:17 02/22/20 11:17 02/22/20 11:17 02/22/20 11:17
--- NOTE | 2020-02-22 12:28 | RADIOLOGY REPORT (SQ) ---
EXAM DESCRIPTION: U/S OB 14+ TRNABD 1GES W/O DOP IMAGES COMPLETED DATE/TIME: 02/22/2020 12:13 pm REASON FOR STUDY: pelvic pain, lmp 12/07/2019, +preg, no vag bleed COMPARISON: None. TECHNIQUE: Static and Dynamic grayscale imaging performed of gravid uterus using transabdominal appr oach. Additional selected color Doppler and spectral images recorded. All stored on PACS. LIMITATIONS: None. FINDINGS: FETUSES SEEN:1 EGA: 14 weeks 3 days Calculated using BPD,FL,HC,AC documented on images. Discrepancy with clinical d ates KIAN: 08/19/2020 LVP: 4.4 x 2.4 cm. PLACENTA: Anterior. GRADE: I HEART RATE: 143 beats per minute. MATERNAL ADNEXA: Maternal ovaries not visualized. CERVICAL LENGTH: 2.3 cm. Closed. OTHER: No other significant finding. IMPRESSION: LIVING INTRAUTERINE . ESTIMATED GESTATIONAL AGE 14 weeks 3 days. NO VISUALIZED ANOMALIES. Trimester of : Second trimester - 13 weeks 1 day to 27 weeks 6 days. TECHNICAL DOCUMENTATION: JOB ID: [id number] 2010 [employer] All Rights Reserved Reading location - IP/workstation name: [email or web address]
[2020-02-22 12:44] LABS: ABSOLUTE EOSINOPHILS # (AUTO) 0.2 10^3/uL (0.0-0.6); ABSOLUTE LYMPHOCYTES (AUTO) 1.5 10^3/uL (0.5-4.7); ABSOLUTE NEUT (AUTO) 5.1 10^3/uL (1.7-8.2); HEMATOCRIT 27.9 % (36.0-47.0); RED CELL DISTRIBUTION WIDTH 14.3 % (11.5-14.0); TOTAL CELLS COUNTED % (AUTO) 100 %
[2020-02-22 12:53] LABS: APPEARANCE,URINE SLIGHTLY-CLOUDY; BILIRUBIN,URINE NEGATIVE (NEGATIVE); COLOR,URINE YELLOW; GLUCOSE, URINE NEGATIVE (NEGATIVE); KETONES,URINE NEGATIVE (NEGATIVE); LEUKOCYTE ESTERASE,URINE TRACE (NEGATIVE); NITRITE,URINE NEGATIVE (NEGATIVE); PROTEIN,URINE NEGATIVE (NEGATIVE); URINE SPECIFIC GRAVITY 1.021
[2020-02-22 13:01] LABS: ABSOLUTE MONOCYTES (AUTO) 0.5 10^3/uL (0.1-1.4); BASOPHILS % (AUTO) 0.5 % (0-2); EOSINOPHILS % (AUTO) 2.2 % (0-6); HEMOGLOBIN 10.1 g/dL (12.0-15.5); LYMPHOCYTES % (AUTO) 20.9 % (13-45); MEAN CORPUSCULAR HEMOGLOBIN 28.6 pg (27.0-33.4); MEAN CORPUSCULAR HGB CONC 36.1 g/dL (32.0-36.0); MEAN CORPUSCULAR VOLUME 79 fl (80-97); MONOCYTES % (AUTO) 6.5 % (3-13); PLATELET COUNT 246 10^3/uL (150-450); RED BLOOD COUNT 3.52 10^6/uL (3.72-5.28); SEGMENTED NEUTROPHILS % (AUTO) 69.9 % (42-78); WHITE BLOOD COUNT 7.4 10^3/uL (4.0-10.5)
[2020-02-22 13:03] LABS: ALBUMIN 3.7 g/dL (3.5-5.0); ALKALINE PHOSPHATASE 62 U/L (38-126); ASPARTATE AMINO TRANSFERASE 20 U/L (14-36); BILIRUBIN,DIRECT 0.1 mg/dL (0.0-0.4); BILIRUBIN,TOTAL 0.3 mg/dL (0.2-1.3); BLOOD UREA NITROGEN 4 mg/dL (7-20); CALCIUM 9.5 mg/dL (8.4-10.2); GLUCOSE 90 mg/dL (75-110); POTASSIUM 4.4 mmol/L (3.6-5.0); TOTAL PROTEIN 6.8 g/dL (6.3-8.2)
[2020-02-22 13:17] LABS: CARBON DIOXIDE 29 mmol/L (22-30); CHLORIDE 99 mmol/L (98-107)
[2020-02-22 13:19] LABS: ANION GAP 4 (5-19)
[2020-02-22 13:21] LABS: URINE AMPHETAMINES SCREEN NEGATIVE; URINE BARBITURATES SCREEN NEGATIVE; URINE COCAINE SCREEN NEGATIVE; URINE MARIJUANA (THC) SCREEN NEGATIVE; URINE PHENCYCLIDINE SCREEN NEGATIVE
[2020-02-22 13:22] LABS: URINE BENZODIAZEPINES SCREEN UNCONFIRMED POSITIVE; URINE METHADONE SCREEN UNCONFIRMED POSITIVE
--- NOTE | 2020-02-22 14:21 | ER Document Report ---
ED General - General Chief Complaint: Pelvic Pain Stated Complaint: PELVIC PAIN Time Seen by Provider: 02/22/20 11:30 TRAVEL OUTSIDE OF THE [place] IN LAST 30 DAYS: No - HPI Notes: Patient is a 29-year-old female, G4, P2 female who presents to the emergency department for evaluation of lower pelvic pain. She states she believes she may be . Her last menstrual period was in November. She has lower pelvic pain that she describes as a cramping. She denies any associated vaginal bleeding or discharge. No aggravating or relieving factors. She said no fevers or chills. She has had nausea with one episode of emesis in the last 24 hours. She does complain of some constipation. She has some urinary frequency, without desean dysuria or hematuria. - Related Data Allergies/Adverse Reactions: doxycycline [Doxycycline] Allergy (Verified 02/22/20 11:31) hydrocodone [From Vicodin] Allergy (Verified 02/22/20 11:31) ibuprofen Allergy (Verified 02/22/20 11:31) Home Medications: Denies Past Medical History - General Information source: Patient Last Menstrual Period: 12/07/2019 - Social History Smoking Status: Current Every Day Smoker Chew tobacco use (# tins/day): No Frequency of alcohol use: None Drug Abuse: None Family History: Reviewed & Not Pertinent, Hypertension, Other - family members with migraines Pulmonary Medical History: Reports: Hx Asthma Neurological Medical History: Reports: Hx Migraine. Denies: Hx Cerebrovascular Accident Renal/ Medical History: Denies: Hx Peritoneal Dialysis Skin Medical History: Denies Hx MRSA - Immunizations Hx Diphtheria, Pertussis, Tetanus Vaccination: Yes Review of Systems - Review of Systems Constitutional: No symptoms reported EENT: No symptoms reported Cardiovascular: No symptoms reported Respiratory: No symptoms reported Gastrointestinal: See HPI Genitourinary: See HPI Female Genitourinary: See HPI Musculoskeletal: No symptoms reported Skin: No symptoms reported Neurological/Psychological: No symptoms reported Physical Exam - Vital signs Vitals: Temp Pulse Resp BP Pulse Ox 98.5 F 91 16 122/74 100 02/22/20 11:17 02/22/20 11:17 02/22/20 11:17 02/22/20 11:17 02/22/20 11:17 - Notes Notes: Vital signs reviewed, please refer to chart. Head is normocephalic, atraumatic. Pupils equal round, reactive to light. Neck is supple without meningismus. Heart is regular rate and rhythm. Lungs are clear to auscultation bilaterally. Abdomen is soft, nontender, normoactive bowel sounds throughout. Extremities without cyanosis, clubbing. Posterior calves are nontender. Peripheral pulses are equal. Skin is warm and dry. Patient is drowsy but arouses to verbal s timuli. She has mild slurred speech, consistent with likely intoxication. Otherwise no gross facial asymmetry, moves all 4 extremities spontaneously. Course - Re-evaluation Re-evalutation: 02/22/20 14:19 Patient presents to the emergency department for evaluation. She was initially seen through triage, had laboratory investigations and imaging as ordered. Upon my examination, I did have significant concerns of the patient was under the influence of an intoxicating substance. She repeatedly denied any sort of regular medications or illicit drug use. When confronted with a positive drug screen, the patient did admit that she "sometimes" goes to the methadone clinic, "when she can make it." She denies any knowledge of how the benzodiazepines could have appeared in her drug screen. I talked to her at length. Offered her any sort of counseling or detox, she does denies wanting that at this time. I talked to her about the risk to her fetus that the methadone and benzodiazepine can cause, as well as abrupt withdrawal of these medications being problematic as well. I strongly advised that she consult with OB and her methadone supplying physician in regards to this. She voiced understanding. Otherwise, I told her that Tylenol should be sufficient for her pain. I will give her mental health and detox program information upon discharge. Otherwise, ultrasound confirms a single intrauterine , normal heart rate. Her urinalysis fails to show any significant signs of infection. She has some mild d ehydration, but otherwise no significant lab abnormalities. She is told to start taking vitamins, this abstain from drugs and alcohol. She states she will call someone to come get her from the department. - Vital Signs Vital signs: Temp Pulse Resp BP Pulse Ox 98.5 F 91 16 122/74 100 02/22/20 11:17 02/22/20 11:17 02/22/20 11:17 02/22/20 11:17 02/22/20 11:17 - Laboratory Result Diagrams: 02/22/20 12:10 02/22/20 12:10 Laboratory results interpreted by me: 02/22/20 02/22/20 02/22/20 12:10 12:10 12:10 RBC 3.52 L Hgb 10.1 L Hct 27.9 L MCV 79 L MCHC 36.1 H RDW 14.3 H Sodium 131.5 L Anion Gap 4 L BUN 4 L Creatinine 0.42 L Beta HCG, Quant 28637.00 H Urine Urobilinogen 4.0 H Ur Leukocyte Esterase TRACE H - Diagnostic Test Radiology reviewed: Reports reviewed Radiology results interpreted by me: 02/22/20 14:21 Obstetrics Ultrasound 02/22/20 11:38 IMPRESSION: LIVING INTRAUTERINE . ESTIMATED GESTATIONAL AGE 14 weeks 3 days. NO VISUALIZED ANOMALIES. Trimester of : Second trimester - 13 weeks 1 day to 27 weeks 6 days. Discharge - Discharge Clinical Impression: Lower abdominal pain, Second trimester , Polysubstance dependence Condition: Stable Disposition: HOME, SELF-CARE Instructions: Abdominal Pain ([facility]), Pelvic Pain in ([facility]) Additional Instructions: Please abstain from using any sort of illicit drugs. Consult with the mental health and detox/substance abuse referral information handed to you in this packet. In regards to your methadone therapy, please consult with OB and your physician in regards to the most appropriate way of proceeding with this treatment in light of your . Otherwise, stay well-hydrated with small, frequent sips of fluids. Follow-up closely with APPRENTICE TECHNICIAN for further evaluation. Return to the emergency department with worsening or new concerning symptoms of any sort. Forms: Return to Work Referrals: WENDI KAT MD [ACTIVE STAFF] - Follow up as needed
[2020-02-22 15:04] VITALS: BP 120/82
== END 2020-02-22 15:02 | disposition home or self-care (01) ==
LOC: ER 11:13
DX: O99.322 Drug use complicating pregnancy, second trimester (principal); O26.892 Other specified pregnancy related conditions, second trimester; R10.2 Pelvic and perineal pain; R35.0 Frequency of micturition; K59.00 Constipation, unspecified; R10.30 Lower abdominal pain, unspecified; Z3A.14 14 weeks gestation of pregnancy; O99.512 Diseases of the respiratory system complicating pregnancy, second trimester; J45.909 Unspecified asthma, uncomplicated; O99.332 Smoking (tobacco) complicating pregnancy, second trimester; Z88.8 Allergy status to other drugs, medicaments and biological substances
CPT/HCPCS: 36415; 76805; 80053; 80307; 81001; 84702; 85025; 99284